=== PATIENT | female | born 1980 | race Caucasian/White ===

== ENCOUNTER 2023-02-18 22:47 | Emergency (ER) | payer OTHER, SELFPAY ==
[2023-02-18 22:48] VITALS: BP 93/68; PULSE 88; RESP 16; TEMP 36.6; O2SAT 100
--- NOTE | 2023-02-19 00:12 | CT_ITS ---
EXAM: CT ABDOMEN AND PELVIS WITH INTRAVENOUS CONTRAST CLINICAL INDICATION: RLQ pain TECHNIQUE: Helically acquired images were obtained of the abdomen and pelvis with intravenous contrast. This CT exam was performed using one or more of the following dose reduction techniques: automated exposure control, adjustment of the mA and/or kV according to patient size, and/or use of iterative reconstruction technique. CONTRAST: IV 100mL [id number] COMPARISON: No relevant prior studies available. FINDINGS: LOWER THORAX: Unremarkable. Lung bases are clear. No cardiomegaly. No significant pericardial effusion. ABDOMEN: LIVER: Unremarkable. Homogeneous. No focal mass. GALLBLADDER AND BILE DUCTS: Several noncalcified stones in the gallbladder with mild prominence of the gallbladder wall. PANCREAS: Unremarkable. No focal cystic or solid mass. SPLEEN: Unremarkable. Normal size without focal cystic or solid mass. ADRENALS: Unremarkable. No nodules. KIDNEYS AND URETERS: Unremarkable. Normal renal size and position. No hydronephrosis. STOMACH AND BOWEL: Unremarkable. No stomach or bowel distention. No focal inflammatory change. PELVIS: APPENDIX: The appendix is normal. BLADDER: Unremarkable. REPRODUCTIVE: Unremarkable as visualized. No mass. ABDOMEN and PELVIS: INTRAPERITONEAL SPACE: Unremarkable. No ascites or other fluid collection. No free air. BONES/JOINTS: Unremarkable. No suspicious lytic or blastic abnormality. SOFT TISSUES: Unremarkable. No discrete abdominal or pelvic wall hernia. VASCULATURE: Unremarkable. Abdominal aorta is non-dilated. LYMPH NODES: Unremarkable. No enlarged lymph nodes. CT/Abdomen/Pelvis W IV Cont ONLY IMPRESSION: Several noncalcified stones in the gallbladder with mild prominence of the gallbladder wall. Correlate for right upper quadrant symptoms and consider ultrasound for further evaluation. Electronically Signed: Juan Mercedes MD at 1:29 EDT ,
[2023-02-19] MEDS: 0.9% Normal Saline 1,000 ML 999 ML IV (00:25)
[2023-02-19 00:27] VITALS: BMI 22.4
[2023-02-19 00:36] LABS: Absolute Lymphocyte Count 0.49 X10^3/uL (0.83-4.51); Absolute Neutrophil Count 11.4 X10^3/uL (2.0-7.7); Basophil# 0.03 X10^3/uL; Basophil% 0.2 % (0-1); Eosinophil# 0.01 X10^3/uL; Eosinophils% 0.1 % (0-5); Hematocrit 40.4 % (37-47); Hemoglobin 14.1 g/dL (12.0-15.0); Lymphocyte # 0.49 X10^3/ul (0.83-4.51); Lymphocyte % 3.9 % (19-41); Mean Corp Hgb Conc 34.9 g/dL (32-36); Mean Corpuscular Hgb 32.5 pg (27.0-32.0); Mean Corpuscular Volume 93.1 fL (81-99); Mean Platelet Vol. 9.8 fl (6.2-12.0); Monocyte# 0.52 X10^3/uL; Monocyte% 4.2 % (0-10); NRBC Flagged by Analyzer 0 % (0-5); Neutrophil # 11.42 X10^3/uL (2.7-7.7); Neutrophil % 91.3 % (47-70); POSITIVE DIFFERENTIAL YES; Platelet Count 274 K/mm3 (150-450); RBC Distribution Width CV 12.3 % (11.6-14.6); RBC Distribution Width SD 42.5 fl (35.1-43.9); Red Blood Count 4.34 M/mm3 (4.2-5.4); White Blood Count 12.5 K/mm3 (4.4-11.0)
[2023-02-19 00:37] LABS: Differential Indicated SCAN CRITERIA MET
[2023-02-19 00:38] LABS: Color, Urine Yellow (Yellow); Glucose, Dipstick Normal (Normal); Ketone-Dipstick Negative (Negative); Leukocyte Esterase-Dipstick 100 /ul (Negative); Nitrite-Dipstick Negative (Negative); Occult Blood-Urine 10 /ul (Negative); Protein-Dipstick 15 mg/dl (Negative); Specific Gravity, Urine 1.015 (1.002-1.030); Urine Bilirubin Dipstick Negative (Negative); Urine Clarity Clear (Clear); Urine Urobilinogen Normal (Normal)
[2023-02-19 00:48] LABS: Internal QC Validated? YES +Cl - CLEAR BKGD; Pregnancy, Serum, hCG Quali. NEGATIVE Negative
[2023-02-19 00:55] LABS: AST(SGOT) 12 U/L (15-37); Alanine Aminotransfer ALT/SGPT 17 U/L (13-56); Albumin, Serum 3.3 g/dL (3.2-5.0); Alkaline Phosphatase 61 U/L (45-117); Anion Gap 6 (5-15); BUN 14 mg/dL (7-18); BUN/Creat Ratio 18.8 RATIO (10-20); Bilirubin, Direct 0.14 mg/dL (0.00-0.30); Calcium,Total 8.6 mg/dL (8.5-10.1); Chloride 108 mmol/L (98-107); Creatinine, Serum 0.74 mg/dL (0.55-1.02); EST Glomerular Filtration Rate 92 mL/min (>60); Est Glom Filt Rate - Afr Amer 111 mL/min (>60); Estimated Creatinine Clearance 79.93 ml/min; Globulin 3.6 g/dL (2.2-4.2); Glucose 111 mg/dL (74-106); Lipase 40 U/L (13-75); Magnesium 1.9 mg/dL (1.6-2.6); Protein, Total 6.9 g/dL (6.4-8.2); Sodium Level 141 mmol/L (136-145)
[2023-02-19 01:00] LABS: Bacteria 3+ /hpf (None Seen); Hyaline Cast 0-5 SEEN /lpf (0-5); Red Blood Cells-Urine 0-5 SEEN /hpf (0-5); Squamous Epithelial Cells - UA 10-25 SEEN /hpf (5-10)
[2023-02-19 01:01] LABS: White Blood Cells 10-25 SEEN /hpf (0-5)
[2023-02-19 01:09] LABS: Lactic Acid 1.6 mmol/L (0.4-1.9)
--- NOTE | 2023-02-19 02:04 | US_ITS ---
EXAM: US ABDOMEN LIMITED, RIGHT UPPER QUADRANT CLINICAL INDICATION: ? Acute cholecystitis -- RT ABD PAIN X 1 DAY TECHNIQUE: Real-time ultrasound of the right upper quadrant with image documentation. COMPARISON: CT abdomen pelvis from same date. FINDINGS: LIVER: Unremarkable. There is normal echotexture. No focal hepatic lesion. No intrahepatic biliary ductal dilation. GALLBLADDER: 2 stones in the gallbladder measuring 2 and 1.7 cm. Positive sonographic Zimmerman''s sign. Mild prominence of the gallbladder wall measuring up to 4 mm. Small amount of pericholecystic fluid. COMMON BILE DUCT: 6 mm. The proximal common bile duct is within normal limits for the patient''s age. PANCREAS: Unremarkable as visualized. No focal abnormality is demonstrated in the pancreas. No pancreatic ductal dilatation. RIGHT KIDNEY: Unremarkable. There is no hydronephrosis. No shadowing calculus. No focal lesion or perinephric collection is demonstrated. US/Gallbladder IMPRESSION: Cholelithiasis with mild prominence of the gallbladder wall and small amount of pericholecystic fluid, with a positive sonographic Zimmerman''s sign. Findings are suspicious for acute cholecystitis. Electronically Signed: Juan Mercedes MD at 4:17 EDT ,
--- NOTE | 2023-02-19 04:44 | EX.ED.DYSGE1 ---
HPI History of Present Illness Chief Complaint: Flank Pain Narrative Narrative: Patient is a 42-year-old female who reports a past medical history of hiatal hernia which was fixed in [place] roughly 3 months ago. She states she was doing well and then this evening after eating noticed that she was having abdominal discomfort more along the right side with nausea. She states that the pain was unbearable initially but has slowly begun to diminish however it has not resolved and secondary to this she comes in for evaluation PFSH PFS Home Medications hydrocodone-acetaminophen 5-325mg 5mg-325mg 1 tab PO Q6H PRN PRN Pain 3 days #12 TABLETS 02/19/23 [Rx Last Taken Unknown] levofloxacin 500 mg tablet 500 mg PO DAILY #7 tabs 02/19/23 [Rx Last Taken Unknown] ondansetron 4 mg disintegrating tablet 4 mg PO TID PRN nausea and vomiting #21 tabs 02/19/23 [Rx Last Taken Unknown] Allergy/AdvReac Type Severity Reaction Status Date / Time No Known Allergies Allergy Verified 02/18/23 22:47 Social History Smoking Status: Never smoker [facility] ED Constitutional Constitutional ED: Denies chills or fever(s) ENT ENT ED: Denies sore throat Cardiovascular Cardiovascular: Denies chest pain Respiratory/Chest Respiratory/Chest: Denies cough or dyspnea Gastrointestinal Gastrointestinal: Reports abdominal pain, diarrhea and nausea; Denies vomiting Genitourinary Genitourinary ED: Denies dysuria Musculoskeletal Musculoskeletal: Denies back pain or myalgias Integumentary Denies rash Neurologic Neurologic: Denies headache(s) Hematologic/Lymphatic Hematologic/Lymphatic: Denies easy bleeding or easy bruising EXAM Physical Exam Const Vital Signs: 02/18/23 22:48 02/19/23 00:11 02/19/23 05:06 Temperature 98 F Temperature Source Temporal Pulse Rate 88 62 Respiratory Rate 16 15 Respiratory Effort Normal Non-Labored Respiratory Pattern Normal Blood Pressure 93/68 136/74 H Blood Pressure Mean 76 Pulse Ox 100 97 Oxygen Delivery Method Room Air Positive well nourished and well developed General Appearance ED: well developed HEENT Reports moist mucous membranes Eyes PERRL and EOMs intact bilaterally General Eye ED: Negative for scleral icterus Neck supple Resp normal respiratory effort and clear to auscultation bilaterally Cardio regular rate and regular rhythm Rate: other Other Details: Radial pulses are plus 2 out of 4 bilaterally are equal and symmetric GI non-distended GI Narrative: Abdomen is soft and nondistended. There is pain on palpation in the right upper quadrant and right lower quadrant. However there is no voluntary guarding or rigidity. Zimmerman sign is negative. Negative heel strike psoas and obturator signs. Auscultation: normoactive bowel sounds Palpation: soft Back/Spine no CVA tenderness Extremity normal to inspection Neuro oriented x3 and CN's II-XII intact bilaterally Sensorium / Orientation: alert Psych mental status grossly normal Skin no rashes or lesions noted General Skin Exam: Negative for jaundice MDM MDM MDM Narrative Medical decision making narrative: Patient presented to the ER with stable vitals but with the sudden onset pain and pain in the right upper and lower quadrant differential diagnosis includes biliary colic pancreatitis acute appendicitis kidney stone UTI pyelonephritis. Therefore elected to perform basic laboratory studies and a CT scan with IV contrast. Labs showed leukocytosis but otherwise no clinically significant finding. CT scan showed gallstones with questionable thickening of the gallbladder concerning for possible acute cholecystitis. Secondary to this finding and her white count and ultrasound was ordered which confirmed gallstones and mild thickening of the wall also concerning for possible acute cholecystitis. Secondary to this repeat read I discussed the case with the general surgeon on-call Dr. Schroeder. He states that as patient is afebrile and her pain is controlled at this time and her liver enzymes are normal he would recommend follow-up as an outpatient but does state the patient should be started on Levaquin. This medication was given in in the ER and then prescribed as an outpatient. The plan of care was discussed with the patient and family and both are agreeable to it. Patient agrees to return to the ER if she cannot get into see her surgeon or and has worsening of symptoms however at this time she is afebrile and normotensive and states her pain is bearable at this time and therefore she will be discharged with general surgery follow-up History & Record Review Discussion w/independent historian: Patient and Family Lab Data Attestation: I reviewed the patient's lab results. Labs: Laboratory Results - last 24 hr 02/19/23 02/19/23 02/19/23 00:25 00:25 00:25 WBC 12.5 H RBC 4.34 Hgb 14.1 Hct 40.4 MCV 93.1 MCH 32.5 H MCHC 34.9 RDW Std Deviation 42.5 RDW Coeff of Sarita 12.3 Plt Count 274 MPV 9.8 Immature Gran % (Auto) 0.300 Neut % (Auto) 91.3 H Lymph % (Auto) 3.9 L [place] % (Auto) 4.2 Eos % (Auto) 0.1 Baso % (Auto) 0.2 Absolute Neuts (auto) 11.4 H Absolute Lymphs (auto) 0.49 L Nucleated RBC % 0 Sodium 141 Potassium 4.0 Chloride 108 H Carbon Dioxide 27.0 Anion Gap 6 BUN 14 Creatinine 0.74 Estim Creat Clear Calc 79.93 Est GFR (MDRD) Af Amer 111 Est GFR (MDRD) Non-Af 92 BUN/Creatinine Ratio 18.8 Glucose 111 H Lactic Acid 1.6 Calcium 8.6 Magnesium 1.9 Total Bilirubin 0.60 Direct Bilirubin 0.14 AST 12 L ALT 17 Alkaline Phosphatase 61 Total Protein 6.9 Albumin 3.3 Globulin 3.6 Lipase 40 Serum , Qual Urine Color Urine Clarity Urine pH Ur Specific [place] Urine Protein Urine Glucose (UA) Urine Ketones Urine Occult Blood Urine Nitrite Urine Bilirubin Urine Urobilinogen Ur Leukocyte Esterase Urine RBC Urine WBC Ur Squamous Epith Cells Urine Bacteria Hyaline Casts Urine Mucus 02/19/23 02/19/23 00:25 00:25 WBC RBC Hgb Hct MCV MCH MCHC RDW Std Deviation RDW Coeff of Sarita Plt Count MPV Immature Gran % (Auto) Neut % (Auto) Lymph % (Auto) [place] % (Auto) Eos % (Auto) Baso % (Auto) Absolute Neuts (auto) Absolute Lymphs (auto) Nucleated RBC % Sodium Potassium Chloride Carbon Dioxide Anion Gap BUN Creatinine Estim Creat Clear Calc Est GFR (MDRD) Af Amer Est GFR (MDRD) Non-Af BUN/Creatinine Ratio Glucose Lactic Acid Calcium Magnesium Total Bilirubin Direct Bilirubin AST ALT Alkaline Phosphatase Total Protein Albumin Globulin Lipase Serum , Qual NEGATIVE Urine Color Yellow Urine Clarity Clear Urine pH 6.0 Ur Specific [place] 1.015 Urine Protein 15 H Urine Glucose (UA) Normal Urine Ketones Negative Urine Occult Blood 10 H Urine Nitrite Negative Urine Bilirubin Negative Urine Urobilinogen Normal Ur Leukocyte Esterase 100 H Urine RBC 0-5 SEEN Urine WBC 10-25 SEEN Ur Squamous Epith Cells 10-25 SEEN Urine Bacteria 3+ Hyaline Casts 0-5 SEEN Urine Mucus Not Reportable Radiography Diagnostic Testing: Clinical Impression(s) from Imaging Studies Abdomen/Pelvis CT 02/19/23 00:12 IMPRESSION: Several noncalcified stones in the gallbladder with mild prominence of the gallbladder wall. Correlate for right upper quadrant symptoms and consider ultrasound for further evaluation. Electronically Signed: Juan Mercedes MD at 1:29 EDT Reading Location ID and State: [facility] / [place] Tel , Service support , Gallbladder Ultrasound 02/19/23 02:04 IMPRESSION: Cholelithiasis with mild prominence of the gallbladder wall and small amount of pericholecystic fluid, with a positive sonographic Zimmerman''s sign. Findings are suspicious for acute cholecystitis. Electronically Signed: Juan Mercedes MD at 4:17 EDT Reading Location ID and State: [facility] / [place] Tel , Service support , Management Discussion w/another healthcare provider: [employer] Discharge Plan Triage Chief Complaint: Flank Pain ED Provider: Alejandro Sinclair Dx/Rx/DC Orders Clinical Impression: Biliary colic, Cholelithiasis Instructions: Treating Gallstones, ED Gallstones with Biliary Colic Prescriptions: New levofloxacin 500 mg tablet 500 mg PO DAILY Qty: 7 0RF hydrocodone-acetaminophen 5-325 mg tablet 1 tab PO Q6H PRN PRN (Reason: Pain) 3 Days Qty: 12 0RF ondansetron 4 mg tablet,disintegrating 4 mg PO TID PRN (Reason: nausea and vomiting) Qty: 21 0RF Primary Care Provider: Care Physician,No Primary Referrals: Juan Schroeder MD [Med Staff - Active Staff] - Care Physician,No Primary [Primary Care Provider] - Activity Restrictions/Additional Instructions: Call the surgeon/Dr. Schroeder's office today and schedule an appointment for today or tomorrow. If you have worsening of symptoms or any further concerns please return to the ER for repeat evaluation Disposition Disposition: Home, Self Care Discharge Date/Time: 02/19/23 05:07
[2023-02-19] MEDS: levoFLOXacin 750 MG Tablet 500 MG PO (05:03)
[2023-02-19 05:06] VITALS: BP 136/74; PULSE 62; RESP 15; O2SAT 97
== END 2023-02-19 05:07 | disposition home or self-care (01) ==
PROVIDERS: Emergency Provider Emergency Medicine; Visit Provider Emergency Medicine
DX: K80.70 Calculus of gallbladder and bile duct without cholecystitis without obstruction (principal)
CPT/HCPCS: 74177; 76705; 80048; 80076; 81001; 83605; 83690; 83735; 84703; 85025; 96360; 96361; 99283; J7030; Q9967; A4216